=== PATIENT | male | born 1985 ===

== ENCOUNTER 2020-06-19 09:52 | Emergency (ER) | payer OTHER ==
[~2020-06-19] VITALS: Ht 157.5 cm; Wt 63.5 kg
== END 2020-06-19 15:18 | disposition home or self-care (01) ==
LOC: ER 09:52
DX: N21.0 Calculus in bladder (principal); R10.31 Right lower quadrant pain

== ENCOUNTER 2023-07-21 14:39 | Emergency (ER) | payer OTHER ==
[~2023-07-21] VITALS: Ht 157.5 cm; Wt 59.0 kg
== END 2023-07-21 18:39 | disposition home or self-care (01) ==
LOC: ER 14:39
DX: L25.9 Unspecified contact dermatitis, unspecified cause (principal); Z91.013 Allergy to seafood; Z91.018 Allergy to other foods